=== PATIENT | female | born 1950 | race Two or more races ===

== ENCOUNTER 2021-01-26 09:50 | Day surgery (SDC) | payer OTHER | END 2021-01-26 14:30 | disposition home or self-care (01) | LOC: AMB-ENDOS 09:50 | PROVIDERS: ATTEND Surgery | DX: K62.89 Other specified diseases of anus and rectum (principal); K64.4 Residual hemorrhoidal skin tags; Z12.11 Encounter for screening for malignant neoplasm of colon; Z20.822 Contact with and (suspected) exposure to COVID-19 ==